=== PATIENT | male | born 1975 | race Caucasian/White ===

== ENCOUNTER 2017-10-11 09:40 | Emergency (ER) | payer BC ==
[2017-10-11] MEDS: ACETAMINOPHEN 325 MG TAB PO (10:23)
== END 2017-10-11 11:27 | disposition home or self-care (01) ==
LOC: M ED 09:40
DX: I10 Essential (primary) hypertension (principal); R07.89 Other chest pain; R06.02 Shortness of breath; R05 Cough; G47.33 Obstructive sleep apnea (adult) (pediatric); Z87.891 Personal history of nicotine dependence; Z98.890 Other specified postprocedural states; Z79.899 Other long term (current) drug therapy
CPT/HCPCS: 71046